=== PATIENT | male | born 1970 ===

== ENCOUNTER 2018-05-18 07:20 | Emergency (ER) | payer OTHER ==
[2018-05-18 07:28] VITALS: BMI 35.4
[2018-05-18] MEDS ORDERED: Sodium Chloride 0.9% 1,000 ML IV ONE (07:33)
[2018-05-18] MEDS ORDERED: Sodium Chloride 0.9% 1,000 ML ONE (07:55)
--- NOTE | 2018-05-18 08:10 | C.PDOC ---
History Of Present Illness 47 years old male presents to ED for complaints of sharp right flank pain that began today morning. Patient reports pain radiates to right lower quadrant and mid abdomen, Denies diarrhea, vomiting, or any other physical complaints. Time Seen by Provider: 05/18/18 07:31 Chief Complaint (Nursing): Abdominal Pain History Per: Patient History/Exam Limitations: no limitations Onset/Duration Of Symptoms: Hrs Current Symptoms Are (Timing): Still Present Location Of Pain/Discomfort: RLQ Radiation Of Pain To:: Flank Quality Of Discomfort: Sharp Associated Symptoms: denies: Fever, Chills, Nausea, Vomiting, Diarrhea Exacerbating Factors: None Alleviating Factors: None Last Bowel Movement: Today Recent travel outside of the [place]: No Past Medical History Reviewed: Historical Data, Nursing Documentation, Vital Signs Vital Signs: Last Vital Signs Temp 98.5 F 05/18/18 07:28 Pulse 65 05/18/18 07:28 Resp 18 05/18/18 07:28 BP 166/81 H 05/18/18 07:28 Pulse Ox 97 05/18/18 07:28 - Medical History PMH: No Chronic Diseases Surgical History: No Surg Hx Family History: States: No Known Family Hx - Social History Hx Alcohol Use: No Hx Substance Use: No - Immunization History Hx Tetanus Toxoid Vaccination: No Hx Influenza Vaccination: No Hx Pneumococcal Vaccination: No Review Of Systems Except As Marked, All Systems Reviewed And Found Negative. Constitutional: Negative for: Fever, Chills Gastrointestinal: Positive for: Abdominal Pain (RLQ ), Other (Right Flank Pain ). Negative for: Nausea, Vomiting, Diarrhea Genitourinary: Negative for: Dysuria, Hematuria Skin: Negative for: Rash Neurological: Negative for: Weakness, Numbness Physical Exam - Physical Exam Appears: Non-toxic, No Acute Distress Skin: Normal Color, Warm, Dry, No Rash Head: Atraumatic, Normacephalic Eye(s): bilateral: Normal Inspection, PERRL, EOMI Oral Mucosa: Moist Neck: Normal ROM, Supple Chest: Symmetrical, No Tenderness Cardiovascular: Rhythm Regular, No Murmur Respiratory: Normal Breath Sounds, No Rales, No Rhonchi, No Wheezing Gastrointestinal/Abdominal: Soft, Tenderness (Diffuse RLQ ), No Guarding, No Rebound Back: CVA Tenderness (Right ) Extremity: Normal ROM Extremity: Bilateral: Atraumatic, Normal Color And Temperature, Normal ROM Pulses: Left Radial: Normal, Right Radial: Normal Neurological/Psych: Oriented x3, Normal Speech Gait: Steady ED Course And Treatment - Laboratory Results Result Diagrams: 05/18/18 09:13 05/18/18 09:13 O2 Sat by Pulse Oximetry: 97 (RA) Pulse Ox Interpretation: Normal - CT Scan/US CT Abdomen/Pelvis Other Rad Studies (CT/US): Read By Radiologist, Radiology Report Reviewed CT/US Interpretation: Date of service: 05/18/2018. PROCEDURE: CT Abdomen and pelvis. HISTORY: Abdominal pain. COMPARISON: None. TECHNIQUE: Contiguous axial images of the abdomen and pelvis performed without oral or intravenous contrast material. Additional 2D sagittal and coronal reformats generated. Reformats generated. Radiation dose: Total exam DLP = 1196.17 mGy-cm. This CT exam was performed using one or more of the following dose reduction techniques: Automated exposure control, adjustment of the mA and/or kV according to patient size, and/or use of iterative reconstruction technique. FINDINGS: LOWER THORAX: Mild passive/dependent type atelectasis both posterior lower lung carrasquillo. Cardiomegaly. Small hiatal hernia. LIVER: Unremarkable. No gross lesion or ductal dilatation. GALLBLADDER AND BILE DUCTS: Unremarkable. PANCREAS: Unremarkable. No mass. No ductal dilatation. SPLEEN: Unremarkable. No splenomegaly. ADRENALS: Unremarkable. KIDNEYS AND URETERS: There is a 4.6 mm calculus which appears to be located in the distal right ureter just caudal to the pelvic rim region best seen on axial series 3, image number 136. Mild right-sided hydronephrosis. BLADDER: Urinary bladder incompletely distended which in part accounts for thick-walled appearance. Muscular hypertrophy may contribute. REPRODUCTIVE: Prostate gland appears enlarged measuring approximately 5.6 cm in transverse dimension. APPENDIX: Appendix is unremarkable. BOWEL: Unremarkable. No obstruction. No gross mural thickening. PERITONEUM: Unremarkable. No fluid collection. No free air. Small fat c ontaining umbilical hernia. LYMPH NODES: Unremarkable. No enlarged lymph nodes. VASCULATURE: Unremarkable. No aortic aneurysm. No aortic atherosclerotic calcification or mural plaque present. BONES: Mild multilevel degenerative spondylosis of the lower thoracic and lumbar spine. OTHER FINDING S: None. IMPRESSION: 4.6 mm calculus distal right ureter with mild right- sided hydronephrosis. Urinary bladder incompletely distended which in part accounts for thick-walled appearance. Muscular hypertrophy presumably contributes. Correlation with urinalysis recommended to exclude cystitis. E nlarged prostate gland findings likely due to BPH however correlation PSA recommended. Medical Decision Making Medical Decision Making: Plan: * IV Fluids * Zofran * Toradol * Urine CUlture * Urinalysis * Blood work * CT Abdomen & Pelvis CT: * Patient has a kidney stone 4mm and distal ureter. 9:30AM: Patient states pain resolved upon re-evaluation. Patient is non-tender. Patient has no UTI or white blood cell count abnormalities. Patient advised to follow up with urologist. Return if symptoms persist or worsen. Patient is currently stable for discharge and will be discharged. Disposition Counseled Patient/Family Regarding: Studies Performed, Diagnosis, Need For Followup, Rx Given - Disposition Referrals: Pardeep Robbins MD [Staff Provider] - Disposition: HOME/ ROUTINE Disposition Time: 09:36 Condition: STABLE Prescriptions: Ibuprofen [Motrin] 600 mg PO TID #20 tab Ondansetron ODT [Zofran ODT] 4 mg PO TID #12 odt oxyCODONE/Acetaminophen [Percocet 5/325 mg Tab] 1 ea PO TID #6 tab Tamsulosin HCl [Flomax] 0.4 mg PO DAILY #10 cap.er.24h Instructions: Renal Colic (DC) Forms: [facility] (Nepalese) - POA Present On Arrival: None - Clinical Impression Clinical Impression: Ureter colic - Scribe Statement The provider has reviewed the documentation as recorded by the Jacquiiblen Ham All medical record entries made by the Jacquiiblen were at my direction and personally dictated by me. I have reviewed the chart and agree that the record accurately reflects my personal performance of the history, physical exam, medical decision making, and the department course for this patient. I have also personally directed, reviewed, and agree with the discharge instructions and disposition.
[2018-05-18 08:30] VITALS: RESP 17
[2018-05-18 09:15] LABS: BASO # 0.1 K/uL (0.0-0.2); HEMOGLOBIN 14.6 g/dL (12.0-18.0); MEAN CORPUSCULAR HGB CONC 33.7 g/dL (33.0-37.0); MEAN PLATELET VOLUME 9.7 fL (7.2-11.7); MONO # 0.6 K/uL (0.0-0.8); NEUT # 5.8 K/uL (1.8-7.0); WHITE BLOOD COUNT 9.3 K/uL (4.8-10.8)
[2018-05-18 09:17] LABS: BASO % 0.7 % (0.0-2.0); EOS # 0.2 K/uL (0.0-0.7); EOS % 1.8 % (0.0-4.0); LYMPH # 2.7 K/uL (1.0-4.3); LYMPH % 29.3 % (20.0-40.0); MEAN CELL VOLUME 89.8 fL (80.0-94.0); MEAN CORPUSCULAR HEMOGLOBIN 30.2 pg (27.0-31.0); MONO % 6.1 % (0.0-10.0); NEUT % 62.1 % (50.0-75.0); RBC 4.83 Mil/uL (4.40-5.90); RED CELL DISTRIBUTION WIDTH 13.6 % (11.5-14.5)
[2018-05-18 09:21] LABS: SQUAMOUS EPITHIAL < 1 /hpf (0-5); URINE BILIRUBIN NEGATIVE (NEGATIVE); URINE BLOOD 3+ (NEGATIVE); URINE CLARITY Hazy (Clear); URINE COLOR Yellow (YELLOW); URINE GLUCOSE (UA) NORMAL (Normal); URINE LEUKOCYTE ESTERASE NEG Leu/uL (Negative); URINE PROTEIN 1+ mg/dL (NEGATIVE); URINE UROBILINOGEN NORMAL mg/dL (0.2-1.0)
--- NOTE | 2018-05-18 09:36 | CT ---
Date of service: 05/18/2018 PROCEDURE: CT Abdomen and pelvis HISTORY: Abdominal pain COMPARISON: None. TECHNIQUE: Contiguous axial images of the abdomen and pelvis performed without oral or intravenous contrast material. Additional 2D sagittal and coronal reformats generated. Reformats generated. Radiation dose: Total exam DLP = 1196.17 mGy-cm. This CT exam was performed using one or more of the following dose reduction techniques: Automated exposure control, adjustment of the mA and/or kV according to patient size, and/or use of iterative reconstruction technique. FINDINGS: LOWER THORAX: Mild passive/dependent type atelectasis both posterior lower lung carrasquillo. Cardiomegaly. Small hiatal hernia. LIVER: Unremarkable. No gross lesion or ductal dilatation. GALLBLADDER AND BILE DUCTS: Unremarkable. PANCREAS: Unremarkable. No mass. No ductal dilatation. SPLEEN: Unremarkable. No splenomegaly. ADRENALS: Unremarkable. KIDNEYS AND URETERS: There is a 4.6 mm calculus which appears to be located in the distal right ureter just caudal to the pelvic rim region best seen on axial series 3, image number 136. Mild right-sided hydronephrosis. BLADDER: Urinary bladder incompletely distended which in part accounts for thick-walled appearance. Muscular hypertrophy may contribute. REPRODUCTIVE: Prostate gland appears enlarged measuring approximately 5.6 cm in transverse dimension. APPENDIX: Appendix is unremarkable. BOWEL: Unremarkable. No obstruction. No gross mural thickening. PERITONEUM: Unremarkable. No fluid collection. No free air. Small fat containing umbilical hernia. LYMPH NODES: Unremarkable. No enlarged lymph nodes. VASCULATURE: Unremarkable. No aortic aneurysm. No aortic atherosclerotic calcification or mural plaque present. BONES: Mild multilevel degenerative spondylosis of the lower thoracic and lumbar spine. OTHER FINDINGS: None. IMPRESSION: 4.6 mm calculus distal right ureter with mild right-sided hydronephrosis. Urinary bladder incompletely distended which in part accounts for thick-walled appearance. Muscular hypertrophy presumably contributes. Correlation with urinalysis recommended to exclude cystitis. Enlarged prostate gland findings likely due to BPH however correlation PSA recommended.
[2018-05-18 10:01] LABS: ALB/GLOB RATIO 1.4 (1.0-2.1); ALBUMIN 4.5 g/dL (3.5-5.0); ALT/SGPT 75 U/L (21-72); AST/SGOT 49 U/L (17-59); BLOOD UREA NITROGEN 21 mg/dL (9-20); CALCIUM 8.5 mg/dl (8.6-10.4); GFR NON-AFRICAN AMERICAN > 60; LIPASE 56 U/L (23-300)
[2018-05-18 10:19] VITALS: BP 159/62; PULSE 64; TEMP 98.6; O2SAT 96
== END 2018-05-18 10:20 | disposition home or self-care (01) ==
LOC: C.ER 07:20
DX: N23 Unspecified renal colic (principal)
CPT/HCPCS: 74176; 80053; 81001; 83690; 85025; 87086; 96374; 96375; 99285; J1885; J2405; J7030